=== PATIENT | male | born 1985 | race Caucasian/White ===

== ENCOUNTER 2022-11-27 22:42 | Emergency (ER) | payer SELFPAY ==
[~2022-11-27] VITALS: Ht 182.9 cm; Wt 75.0 kg
[2022-11-27 23:34] VITALS: TEMP 98.3
[2022-11-28 00:04] VITALS: O2SAT 95
[2022-11-28] MEDS ORDERED: SODIUM CHLORIDE 0.9% 1,000 ML IV ONE (00:30)
[2022-11-28] MEDS ORDERED: HYDROcodone-ACET 10/325MG TAB PO ONE (01:45)
[2022-11-28] MEDS ORDERED: CEPHALEXIN 250 MG CAP PO ONE (01:45)
[2022-11-28] MEDS ORDERED: TETANUS-DIPTH-ACEL PERTUSSIS 0.5ML SYR Tdap IM ONE (01:45)
[2022-11-28] MEDS ORDERED: CEPH500C PO (01:47)
[2022-11-28] MEDS ORDERED: IBUP-1455 PO (01:47)
[2022-11-28] MEDS ORDERED: HYDR-4902 PO (01:47)
[2022-11-28 02:29] VITALS: BP 125/99; PULSE 63; RESP 12; O2SAT 100
== END 2022-11-28 02:38 | disposition home or self-care (01) ==
LOC: EDBD 22:42 → ER 22:46
DX: S21.119A Laceration without foreign body of unspecified front wall of thorax without penetration into thoracic cavity, initial encounter (principal); S61.412A Laceration without foreign body of left hand, initial encounter; M54.2 Cervicalgia; Z88.1 Allergy status to other antibiotic agents; Z88.8 Allergy status to other drugs, medicaments and biological substances; V89.9XXA Person injured in unspecified vehicle accident, initial encounter; Y93.89 Activity, other specified; Y92.89 Other specified places as the place of occurrence of the external cause; Y99.8 Other external cause status
CPT/HCPCS: 12002; 70450; 71250; 72125; 73120; 74176; 90471; 90715; 96360; 99285; J7030

== ENCOUNTER 2022-11-29 09:15 | Emergency (ER) | payer MEDICAID, OTHER ==
[~2022-11-29] VITALS: Ht 182.9 cm; Wt 73.4 kg
[~2022-11-29 09:15] MED LIST: CEPH500C PO; HYDR-4902 PO; IBUP-1455 PO
[2022-11-29 11:10] VITALS: BP 100/84; PULSE 72; RESP 16; TEMP 98.6; O2SAT 98
== END 2022-11-29 11:55 | disposition home or self-care (01) ==
LOC: ER 09:15
DX: S61.412D Laceration without foreign body of left hand, subsequent encounter (principal); F17.210 Nicotine dependence, cigarettes, uncomplicated; Z88.1 Allergy status to other antibiotic agents; Z79.899 Other long term (current) drug therapy; X58.XXXD Exposure to other specified factors, subsequent encounter

== ENCOUNTER 2022-12-11 15:51 | Emergency (ER) | payer MEDICAID ==
[~2022-12-11] VITALS: Ht 182.9 cm; Wt 72.9 kg
[2022-12-11 18:54] VITALS: BP 126/71; PULSE 82; RESP 16; TEMP 98.5; O2SAT 97
== END 2022-12-11 19:10 | disposition home or self-care (01) ==
LOC: ER 15:51
DX: S20.212A Contusion of left front wall of thorax, initial encounter (principal); S21.112D Laceration without foreign body of left front wall of thorax without penetration into thoracic cavity, subsequent encounter; F17.210 Nicotine dependence, cigarettes, uncomplicated; F12.10 Cannabis abuse, uncomplicated; Z88.1 Allergy status to other antibiotic agents; V29.99XD Rider (driver) (passenger) of other motorcycle injured in unspecified traffic accident, subsequent encounter